=== PATIENT | female | born 1965 | race Caucasian/White ===

== ENCOUNTER 2018-12-22 06:21 | Inpatient (IN) ==
[2018-12-22] MEDS ORDERED: *HR* Midazolam HCl 2 MG/2 ML VIAL ONE (06:32)
[2018-12-22] MEDS ORDERED: Lidocaine -MPF 2% 2 ML VIAL ONE (06:32)
[2018-12-22] MEDS ORDERED: Ondansetron 4 MG/2 ML VIAL ONE (06:32)
[2018-12-22] MEDS ORDERED: *HR* Succinylcholine 200 MG/10 ML VIAL IVP ONE (06:32)
[2018-12-22] MEDS ORDERED: Lidocaine HCL 4 ML Topical Solution (Laryng-O-Jet Kit Sterile Pak) TP ONE (06:32)
[2018-12-22] MEDS ORDERED: *HR* Rocuronium Bromide 50 MG/5 ML VIAL ONE ×2 (06:32→08:35)
[2018-12-22] MEDS ORDERED: *HR* Propofol 200 MG/20 ML VIAL IVP ONE (06:32)
[2018-12-22] MEDS ORDERED: Dexamethasone 4 MG/ML VIAL ONE (06:32)
[2018-12-22] MEDS ORDERED: *HR* FentaNYL (PF) 100 MCG/2 ML VIAL ONE (06:32)
[2018-12-22] MEDS ORDERED: cefOXitin 3,000 MG in 0.9 % Sodium Chloride 100 ML IVPB ONE (06:38)
[2018-12-22] MEDS: Ringers Solution, Lactated 1,000 ML IVC SCH ×3 (07:02→19:57)
[2018-12-22] MEDS ORDERED: Famotidine 20 MG/2 ML VIAL IVP ONE (07:08)
[2018-12-22] MEDS ORDERED: Scopolamine Patch 1.5 MG PATCH.TD72 TD ONE (07:08)
[2018-12-22] MEDS ORDERED: Gabapentin 300 MG CAPSULE PO ONE (07:09)
[2018-12-22] MEDS ORDERED: Celecoxib 200 MG CAPSULE PO ONE (07:09)
[2018-12-22] MEDS ORDERED: Neostigmine Methylsulfate 3 MG/3 ML SYRINGE ONE (09:00)
[2018-12-22] MEDS ORDERED: *HR* HYDROMORPHONE 2 MG/ML VIAL ONE (09:02)
[2018-12-22] MEDS ORDERED: *HR* Promethazine 25 MG/ML VIAL ONE (10:16)
[2018-12-22] MEDS ORDERED: *HR* Promethazine 25 MG/ML VIAL IVP PRN (10:19)
[2018-12-22] MEDS ORDERED: Sennosides 8.6 MG TABLET PO PRN (11:29)
[2018-12-22] MEDS ORDERED: Naloxone 0.4 MG/ML INJ IVP PRN (11:29)
[2018-12-22] MEDS: *HR* OxyCODONE Immed Rel 5 MG TABLET PO PRN ×3 (13:43→22:58)
[2018-12-22] MEDS: Ondansetron 4 MG/2 ML VIAL IVP PRN ×2 (13:49→18:25)
[2018-12-22] MEDS: Ketorolac 30 MG/ML VIAL IVP SCH (15:34)
[2018-12-22] MEDS: cefOXitin 1,000 MG in 0.9 % Sodium Chloride Mini Bag 100 ML IVPB SCH (15:36)
[2018-12-23] MEDS: cefOXitin 1,000 MG in 0.9 % Sodium Chloride Mini Bag 100 ML IVPB SCH ×3 (00:07→16:52)
[2018-12-23] MEDS: Ondansetron 4 MG/2 ML VIAL IVP PRN ×2 (00:07→08:37)
[2018-12-23] MEDS: Ketorolac 30 MG/ML VIAL IVP SCH (00:07)
[2018-12-23] MEDS: Ringers Solution, Lactated 1,000 ML IVC SCH (03:20)
[2018-12-23] MEDS: *HR* OxyCODONE Immed Rel 5 MG TABLET PO PRN (08:39)
[2018-12-23 21:19] VITALS: BP 147/83
== END 2018-12-23 21:47 | disposition home or self-care (01) | DRG 742 ==
LOC: SAMDAY 06:21 → 1NENUOBS 10:56
PROVIDERS: ADMIT Obstetrics & Gynecology; ATTEND Obstetrics & Gynecology

== ENCOUNTER 2020-05-21 14:44 | Inpatient (IN) ==
[2020-05-21 15:55] LABS: INR 1.3; Prothrombin Time 14.4 Seconds (9.4-12.1)
[2020-05-21 16:06] LABS: BUN/Creatinine Ratio 26 (6-26); Blood Urea Nitrogen 37 mg/dL (6-20); Calcium 9.1 mg/dL (8.6-10.3); Carbon Dioxide 26 mEq/L (23-29); Chloride 101 mEq/L (98-107); Glucose 98 mg/dL (70-105); Osmolality,Calculated 297 (280-300); Potassium 3.6 mEq/L (3.5-5.1); Sodium 139 mEq/L (136-145); Troponin I < 0.03 ng/mL (< 0.04); eGFR For African Americans 47 (> 60); eGFR For Non-African Americans 38 (> 60)
[2020-05-21 16:28] LABS: Basophils % 0.3 %; Eosinophils % 0.3 %; Hematocrit 39.5 % (35.3-44.9); Hemoglobin 13.6 g/dL (11.5-15.4); Immature Granulocytes % 0.6 % (0-4); Lymphocytes # 0.8 K/mcL (0.6-4.6); Lymphocytes % 24.8 %; Mean Corpuscular HGB Conc 34.4 g/dL (31.6-35.5); Mean Corpuscular Hemoglobin 31.9 pg (28.0-33.3); Mean Corpuscular Volume 92.7 fL (83.0-100.0); Mean Platelet Volume 11.6 fL (9.4-12.4); Monocytes # 0.1 K/mcL (0.0-1.3); Monocytes % 3.7 %; Neutrophils # 2.3 K/mcL (1.6-8.9); Platelet Count 129 K/mcL (140-400); Red Blood Count 4.26 M/mcL (3.82-4.97); Red Cell Distribution Width 13.9 % (11.5-14.5); Segmented Neutrophils % 70.3 %; White Blood Count 3.3 K/mcL (4.3-11.1)
[2020-05-21 16:32] LABS: Large Platelets Present (Not Present); Platelet Estimate Normal (Normal)
[2020-05-21] MEDS ORDERED: Azithromycin 500 MG in 0.9 % Sodium Chloride 250 ML IVPB ONE (17:20)
[2020-05-21] MEDS ORDERED: cefTRIAXone 1,000 MG in Water for inj. (sterile) 10 ML IVP ONE (17:20)
[2020-05-21] MEDS ORDERED: Ondansetron 4 MG/2 ML VIAL IVP PRN (17:45)
[2020-05-21] MEDS ORDERED: Melatonin 3 MG TABLET PO PRN (17:45)
[2020-05-21] MEDS ORDERED: Acetaminophen 325 MG TABLET PO PRN (17:45)
[2020-05-21] MEDS ORDERED: 0.9 % Sodium Chloride 1,000 ML IVC ONE (17:53)
[2020-05-21 18:12] LABS: Alanine Aminotransferase 19 Units/L (7-52); Albumin 4.2 g/dL (3.5-5.7); Albumin/Globulin Ratio 1.2 (1.1-2.2); Alkaline Phosphatase 70 Units/L (34-104); Aspartate Amino Transferase 26 Units/L (13-39); Bilirubin,Direct 0.2 mg/dL (0.0-0.2); Bilirubin,Indirect 0.5 mg/dL (0.0-1.0); Bilirubin,Total 0.7 mg/dL (0.3-1.0); C-Reactive Protein 129 mg/L (Less than 10); Globulin 3.4 g/dL (2.4-3.5); Lactate Dehydrogenase 329 Units/L (140-271); Total Protein 7.6 g/dL (6.4-8.9)
[2020-05-21] MEDS: Dexamethasone Sodium Phos/PF 10 MG/ML VIAL IVP SCH (18:16)
[2020-05-21 18:30] LABS: Ferritin 652 ng/mL (10-120)
[2020-05-21] MEDS: *HR* Enoxaparin 40 MG/0.4 ML SYRINGE SQ SCH (19:03)
[2020-05-22] MEDS: *HR* Enoxaparin 40 MG/0.4 ML SYRINGE SQ SCH ×2 (05:10→18:06)
[2020-05-22 08:16] LABS: BUN/Creatinine Ratio 35 (6-26); Blood Urea Nitrogen 31 mg/dL (6-20); Calcium 8.6 mg/dL (8.6-10.3); Carbon Dioxide 26 mEq/L (23-29); Chloride 105 mEq/L (98-107); Glucose 89 mg/dL (70-105); Osmolality,Calculated 294 (280-300); Potassium 3.8 mEq/L (3.5-5.1); Sodium 139 mEq/L (136-145); eGFR For African Americans > 60 (> 60); eGFR For Non-African Americans > 60 (> 60)
[2020-05-22] MEDS: Dexamethasone Sodium Phos/PF 10 MG/ML VIAL IVP SCH (08:29)
[2020-05-22] MEDS ORDERED: Azithromycin 250 MG TABLET PO SCH (09:00)
[2020-05-23] MEDS: *HR* Enoxaparin 40 MG/0.4 ML SYRINGE SQ SCH ×2 (05:59→16:25)
[2020-05-23 06:32] LABS: Hematocrit 32.4 % (35.3-44.9); Mean Corpuscular HGB Conc 36.4 g/dL (31.6-35.5); Mean Corpuscular Hemoglobin 34.3 pg (28.0-33.3); Mean Corpuscular Volume 94.2 fL (83.0-100.0); Mean Platelet Volume 11.6 fL (9.4-12.4); Platelet Count 142 K/mcL (140-400); Red Blood Count 3.44 M/mcL (3.82-4.97); Red Cell Distribution Width 13.9 % (11.5-14.5); White Blood Count 2.2 K/mcL (4.3-11.1)
[2020-05-23 06:35] LABS: Hemoglobin 11.8 g/dL (11.5-15.4)
[2020-05-23 06:49] LABS: BUN/Creatinine Ratio 40 (6-26); Blood Urea Nitrogen 33 mg/dL (6-20); Carbon Dioxide 25 mEq/L (23-29); Chloride 105 mEq/L (98-107); Glucose 91 mg/dL (70-105); Magnesium 2.1 mg/dL (1.6-2.6); Osmolality,Calculated 297 (280-300); Potassium 3.7 mEq/L (3.5-5.1); Sodium 140 mEq/L (136-145); eGFR For African Americans > 60 (> 60); eGFR For Non-African Americans > 60 (> 60)
[2020-05-23] MEDS: Dexamethasone Sodium Phos/PF 10 MG/ML VIAL IVP SCH (07:37)
[2020-05-24 02:13] LABS: Basophils % 0.7 %; Eosinophils % 0.3 %; Hematocrit 34.4 % (35.3-44.9); Hemoglobin 12.1 g/dL (11.5-15.4); Lymphocytes # 1.2 K/mcL (0.6-4.6); Lymphocytes % 42.6 %; Mean Corpuscular HGB Conc 35.2 g/dL (31.6-35.5); Mean Corpuscular Hemoglobin 32.8 pg (28.0-33.3); Mean Corpuscular Volume 93.2 fL (83.0-100.0); Mean Platelet Volume 11.6 fL (9.4-12.4); Monocytes # 0.2 K/mcL (0.0-1.3); Monocytes % 7.9 %; Neutrophils # 1.4 K/mcL (1.6-8.9); Platelet Count 155 K/mcL (140-400); Red Blood Count 3.69 M/mcL (3.82-4.97); Red Cell Distribution Width 13.4 % (11.5-14.5); Segmented Neutrophils % 47.5 %; White Blood Count 2.9 K/mcL (4.3-11.1)
[2020-05-24 02:32] LABS: BUN/Creatinine Ratio 42 (6-26); Blood Urea Nitrogen 33 mg/dL (6-20); Carbon Dioxide 25 mEq/L (23-29); Chloride 108 mEq/L (98-107); Glucose 95 mg/dL (70-105); Osmolality,Calculated 299 (280-300); Phosphorous 2.9 mg/dL (2.7-4.5); Potassium 3.8 mEq/L (3.5-5.1); Sodium 141 mEq/L (136-145); eGFR For African Americans > 60 (> 60); eGFR For Non-African Americans > 60 (> 60)
[2020-05-24 02:39] LABS: Platelet Estimate Normal (Normal)
[2020-05-24 04:38] VITALS: BP 139/90
[2020-05-24] MEDS: *HR* Enoxaparin 40 MG/0.4 ML SYRINGE SQ SCH (05:24)
[2020-05-24] MEDS: Dexamethasone Sodium Phos/PF 10 MG/ML VIAL IVP SCH (09:08)
== END 2020-05-24 18:30 | disposition home or self-care (01) | DRG 177 ==
LOC: 2NENU 14:44 → EMEROOARM 14:44 → SUATTDRO 17:40 → 2NENU 18:31 → SUATTDRO 05-22 12:37
PROVIDERS: ADMIT Internal Medicine; ATTEND Student in an Organized Health Care Education/Training Program